=== PATIENT | female | born 1980 | race Two or more races ===

== ENCOUNTER 2024-05-05 22:11 | Emergency (ER) | payer MEDICAID, OTHER ==
[~2024-05-05] VITALS: Ht 160 cm; Wt 85.7 kg
[2024-05-05 22:53] LABS: BASOPHILS # (AUTO) 0.1 K/uL (0.0-0.2); EOSINOPHILS # (AUTO) 0.3 K/uL (0.0-0.7); HEMATOCRIT 36 % (33-45); HEMOGLOBIN 12.6 g/dL (11.5-14.8); LYMPHOCYTES # (AUTO) 2.5 K/uL (0.8-4.8); LYMPHOCYTES % (AUTO) 30.1 % (20.0-44.0); MEAN CORPUSCULAR HEMOGLOBIN 31 PG (26.0-33.0); MEAN CORPUSCULAR HGB CONC 35 g/dl (31.0-36.0); MEAN CORPUSCULAR VOLUME 90 fL (82-100); MONOCYTES # (AUTO) 0.7 K/uL (0.1-1.30); MONOCYTES % (AUTO) 8.6 % (2.0-12.0); NEUTROPHILS # (AUTO) 4.9 K/uL (1.8-8.9); NEUTROPHILS % (AUTO) 57.3 % (43.0-81.0); PLATELET COUNT (AUTO) 243 K/uL (150-450); RED BLOOD CELL COUNT(AUTO) 4.04 MIL/uL (4.0-5.2); RED CELL DISTRIBUTION WIDTH 13.9 % (11.5-15.0); WHITE BLOOD COUNT (AUTO) 8.5 K/uL (4.3-11.0)
[2024-05-05 23:02] LABS: CALCIUM, SERUM 9.3 mg/dL (8.5-10.1); CARBON DIOXIDE 25 mmol/L (21-32); CHLORIDE 102 mmol/L (98-107); CREATININE 0.9 mg/dL (0.6-1.3); GLUCOSE 86 mg/dL (74-106); POTASSIUM 3.5 mmol/L (3.5-5.1); SODIUM SERUM 142 mmol/L (136-145); UREA NITROGEN, BLOOD 14 mg/dL (7-18)
[2024-05-05] MEDS: IV NS 0.9% 1,000 ML BAG IV ONE (23:02)
[2024-05-05 23:08] LABS: ACETAMINOPHEN <10 ug/ml (10-30); ALANINE AMINOTRANSFERASE 22 U/L (12-78); ALBUMIN 4.1 g/dL (3.4-5.0); ALCOHOL, BLOOD < 3 mg/dL (0-10); ALKALINE PHOSPHATASE 71 U/L (46-116); ASPARTATE AMINOTRANSFERASE 16 U/L (15-37); BILIRUBIN,DIRECT 0.3 mg/dL (0.0-0.2); SALICYLATE 1.5 mg/dL (2.8-20.0)
[2024-05-06] MEDS ORDERED: DICY20TA11 PO (01:36)
[2024-05-06] MEDS ORDERED: KETO10TA2 PO (01:36)
[2024-05-06] MEDS ORDERED: MECL-159 PO (01:36)
[2024-05-06] MEDS ORDERED: ONDA4TAB11 PO (01:36)
[2024-05-06 01:47] VITALS: BP 132/88; TEMP 98; O2SAT 97
== END 2024-05-06 01:55 | disposition home or self-care (01) ==
LOC: ER 22:13
DX: R42 Dizziness and giddiness (principal); R10.9 Unspecified abdominal pain; R10.2 Pelvic and perineal pain; Z79.899 Other long term (current) drug therapy
CPT/HCPCS: 99285; 96360; 93005; 71045; 70450; 85025; 80048; 80076; 84703; 36415; 84484; 82962; 80143; 80320; J7030; G0480